=== PATIENT | male | born 1985 | race Caucasian/White ===

== ENCOUNTER 2022-04-29 06:36 | Emergency (ER) | payer OTHER ==
[2022-04-29 06:48] VITALS: BP 120/77; PULSE 72; RESP 16; TEMP 98.8; BMI 26.6
[2022-04-29] MEDS ORDERED: ACETAMINOPHEN 325 MG TABLET (FP) PO ONE (07:05)
[2022-04-29] MEDS ORDERED: LIDOCAINE 5% TOPICAL PATCH TP ONE (07:06)
[2022-04-29] MEDS ORDERED: RAPID SEQUENCE INTUBATION KIT NR ONE (07:23)
[2022-04-29] MEDS ORDERED: ACETAMINOPHEN 325 MG TABLET (FP) ONE (07:28)
[2022-04-29] MEDS ORDERED: LIDOCAINE PATCH REMOVAL MC SCH (22:00)
== END 2022-04-29 07:44 | disposition home or self-care (01) ==
LOC: FER 06:36
DX: M25.512 Pain in left shoulder (principal)
CPT/HCPCS: 99283-25